=== PATIENT | female | born 1970 | race Caucasian/White ===

== ENCOUNTER 2021-07-02 17:15 | Emergency (ER) | payer OTHER ==
[~2021-07-02 17:15] MED LIST: NORCO 5-325 TA1 EACH PO; PREDNISONE50 MG PO; TESSALON PERLE100 MG PO; VENTOLIN HFA 66.7 GM INH; ZOFRAN4 MG PO
== END 2021-07-02 21:55 | disposition home or self-care (01) ==
LOC: ER1 17:15
DX: J02.9 Acute pharyngitis, unspecified (principal); R09.81 Nasal congestion; Z20.822 Contact with and (suspected) exposure to COVID-19; K21.9 Gastro-esophageal reflux disease without esophagitis; Z79.899 Other long term (current) drug therapy
CPT/HCPCS: 0240U; 87081; 87880; 99283

== ENCOUNTER 2021-09-07 18:12 | Emergency (ER) | payer OTHER ==
[2021-09-07] MEDS ORDERED: HYDROCODONE-AC1 EACH PO (21:00)
[2021-09-07] MEDS ORDERED: KEFLEX750 MG PO (21:03)
== END 2021-09-07 21:04 | disposition home or self-care (01) ==
LOC: ER1 18:12
DX: S51.812A Laceration without foreign body of left forearm, initial encounter (principal); E03.9 Hypothyroidism, unspecified; W01.0XXA Fall on same level from slipping, tripping and stumbling without subsequent striking against object, initial encounter
CPT/HCPCS: 99282

== ENCOUNTER → 2022-04-06 | Outpatient (CLI) | payer OTHER ==
[~2022-04-06] MED LIST changes: +HYDROCODONE-AC1 EACH PO; +KEFLEX750 MG PO
[2022-04-06 14:02] LABS: HEMOGLOBIN 13.4 gm/dl (12.3-15.3); RED BLOOD COUNT 4.45 M/UL (4.00-5.10)
[2022-04-06 15:06] LABS: BUN/CREATININE RATIO 21 (0-10)
[2022-04-07 08:15] LABS: RHEUMATOID ARTHRITIS FACTOR <10.0 IU/mL (<14.0); VITAMIN D, 25-HYDROXY 33.6 ng/mL (30.0-100.0)
== END ==
LOC: LAB 13:32
PROVIDERS: Nurse Practitioner Family
DX: G56.00 Carpal tunnel syndrome, unspecified upper limb (principal); G43.009 Migraine without aura, not intractable, without status migrainosus; F41.8 Other specified anxiety disorders; M79.7 Fibromyalgia; Z00.00 Encounter for general adult medical examination without abnormal findings; G89.4 Chronic pain syndrome; E55.9 Vitamin D deficiency, unspecified
CPT/HCPCS: 36415; 80053; 82607; 85025; 85652; 86038; 86431

== ENCOUNTER 2022-08-02 19:34 | Emergency (ER) | payer OTHER | END 2022-08-02 23:50 | disposition left against medical advice (07) | LOC: ER1 19:34 | DX: S80.11XA Contusion of right lower leg, initial encounter (principal); R07.81 Pleurodynia; W01.0XXA Fall on same level from slipping, tripping and stumbling without subsequent striking against object, initial encounter | CPT/HCPCS: 71045; 73564; 73590; 99283 ==